=== PATIENT | female | born 1935 | race Caucasian/White ===

== ENCOUNTER 2018-10-22 15:39 | Inpatient (IN) | payer OTHER ==
[~2018-10-22] VITALS: Ht 167.6 cm; Wt 71.7 kg
[2018-10-22 17:19] VITALS: BP 129/85
[2018-10-22 19:12] LABS: HEMATOCRIT 38.9 % (37.0-47.0); HEMOGLOBIN 13.6 gm/dL (12.0-15.0); MCH 35.6 pg (26.0-34.0); MCHC 34.8 g/dL (28.0-37.0); MCV 102.3 fL (80.0-100.0); RBC 3.8 mil/uL (4.20-5.00); RDW 12.1 % (10.5-14.5); WBC 10.8 thou/uL (4.0-11.0)
[2018-10-22 19:21] LABS: CALCIUM 9.3 mg/dL (8.5-10.1); CREATININE 0.8 mg/dL (0.6-1.0); POTASSIUM 3.5 mmol/L (3.5-5.1)
[2018-10-22 19:58] LABS: PROTIME 10.5 Seconds (9.3-11.4)
[2018-10-22 20:10] VITALS: BP 129/85
[2018-10-22 20:20] VITALS: BP 174/108
[2018-10-22 20:45] VITALS: BP 158/86
[2018-10-22 21:00] VITALS: BP 174/108
[2018-10-22 22:16] VITALS: BP 145/74
[2018-10-23 00:10] VITALS: BP 131/73
[2018-10-23 03:55] VITALS: BP 108/63
[2018-10-23 04:18] LABS: CALCIUM 9.1 mg/dL (8.5-10.1); CREATININE 0.9 mg/dL (0.6-1.0); HEMATOCRIT 37.4 % (37.0-47.0); HEMOGLOBIN 13.2 gm/dL (12.0-15.0); MCHC 35.3 g/dL (28.0-37.0); MCV 102.1 fL (80.0-100.0); POTASSIUM 3.5 mmol/L (3.5-5.1); RBC 3.67 mil/uL (4.20-5.00); RDW 12.5 % (10.5-14.5); WBC 7.4 thou/uL (4.0-11.0)
--- NOTE | 2018-10-23 04:57 | NUR ---
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 Ms. Vera has been reported to.
[2018-10-23 08:41] VITALS: BP 99/60
--- NOTE | 2018-10-23 13:40 | EKG ---
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 ��������������������������������������������� 10/23/18 1340 1916 15 Jeff Rivera MD, [facility] /EPI
--- NOTE | 2018-10-23 13:41 | NUR ---
ASSUMED CARE THIS AM, SHIFT ASSESSMENT DONE, VSS. NPO SINCE LAST NIGHT. DR WEINSTEIN HAS BEEN CONSULTED FOR FRACTURE. REPORTED PAIN, PRN PAIN AND NAUSEA MED GIVEN. INGRAM IN PLACE. DR WEINSTEIN STOPPED BY THIS AFTERNOON AND DECIDED ABOUT SURGERY. AWAITING FOR SURGERY TO PROVIDE A TIME. WILL CONTINUE TO ASSESS AND ASSIST WITH ADLs NEEDED.
[2018-10-23 16:36] VITALS: BP 104/77
--- NOTE | 2018-10-23 16:59 | NUR ---
PATIENT WENT DOWN FOR SURGERY AT 1400. CALL RECEIVED FROM PACU SHORTLY AFTER INDICATING THAT PATIENT WAS AFIB WITH RVR. SURGERY WAS PLACED ON HOLD. DR WEINSTEIN CALLED AND ASKED TO PUT IN A CARDIOLOGY CONSULT, DR BORDEN WAS CONSULTED AND ANSWERING SERVICE CALLED. ORDERS RECEIVED TO TRANFER PATIENT TO , REPORT CALLED TO NURSE YANCY. PATIENT CAN HAVE FOOD TODAY. DR WEINSTEIN INDICATED IF CARDIOLIGY CAN CLEAR THE PAITNET FOR SURGERY TODAY THEN HE CAN DO THE SURGERY AT 0730 TOMORROW HE IS GOING OUT OF TOWN TOMORROW, IF NOT ONE OF HIS PARTNERS WILL BE DOING THE SURGERY AT A LATER TIME POINT. DR CHAUHAN=TEO CAN BE DIRECTLY REACHED AT [phone].
--- NOTE | 2018-10-23 18:41 | NUR ---
ASSUMED CARE OF PT AROUND 1620. REPORT TAKEN FRON 4EAST AND SURGERY NURSE. SURGERY TO RIGHT HIP ON HOLD DUE TO AFIB/RVR. PT BROUGHT TO CCU ROOM 215 PER SURGERY NURSES. PT HR 130-140 CARDIZEM GTT STARTED IN OR. HR NOW 80'S. PT ALERT AND ORIENTED TIMES FOUR. VSS, 96%2L, C/O PAIN RIGHT HIP PRN PAIN MEDICATIONS GIVEN WITH RELEIF. PLAN FOR SURGERY TOMORROW. PT TOLERATES MEDS AND MEALS. FAMILY AT BEDSIDE. WILL CONTINUE TO MONITOR.
[2018-10-23 19:35] VITALS: BP 97/53
[2018-10-23] MEDS ORDERED: LASIX 20 MG TAB20 MG PO (20:56)
[2018-10-23] MEDS ORDERED: NEURONTIN 300300 M1 PO (20:58)
[2018-10-24 00:30] VITALS: BP 106/56
[2018-10-24 05:25] VITALS: BP 102/58
--- NOTE | 2018-10-24 06:35 | NUR ---
ASSUME CARE 190. PT/VITALS STABLE. DENIES ANY PAIN AT THIS TIME. ENCOURAGED TO CALL FOR PAIN MEDICATION BEFORE PAIN GETS OUT OF HAND. ASSESSMENT ASA CHARTED. PROGRESSING WITH POC. PLAN IS NPO FOR POSSIBLE SURGERY TODAY OF CARDIOLOGY CLEAR PT. PT SR ALL NIGHT WITH RATE CONTROLLED. WILL CONTINUE TO MONITOR AND FOLLOW WITH POC
[2018-10-24 08:06] VITALS: BP 123/78
--- NOTE | 2018-10-24 10:05 | 2DMMODE ---
[facility] [address] [place] [address] 2 D/M-MODE ECHOCARDIOGRAM Name: NICOLETTE NINO Room #: 215-P ADM IN M.R.#: [id number] ������������� Admission: 10/22/18 ������������� Attend Phys: Trell Ng MD Discharge: ��� ������������� ��� Date of : 33 Date of Service: 10/24/18 1005 �� Report #: [id number] �������� ��������������������������������������������[id number] THIS REPORT FOR: //name// APPROVED REPORT Study performed: 10/24/2018 09:10:23 EXAM: Comprehensive 2D, Doppler, and color-flow Echocardiogram Patient Location: Bedside Room #: 215 Status: routine BSA: 1.67 HR: 84 bpm BP: 123/78 mmHg Rhythm: NSR Other Information Study Quality: Adequate Indications Pre-Op Atrial Fibrillation 2D Dimensions RVDd: 39.00 mm IVSd: 10.03 (7-11mm) LVOT Diam: 19.61 (18-24mm) LVDd: 41.77 mm PWd: 9.04 (7-11mm) LVDs: 32.74 (25-40mm) Aortic Root: 34.53 mm Volumes Left Atrial Volume (Systole) Single Plane 4CH: 63.09 mL Single Plane 2CH: 52.79 mL LA ESV Index: 39.00 mL/m2 Aortic Valve AoV Peak Meek.: 1.44 m/s AO Peak Gr.: 8.33 mmHg LVOT Max P.17 mmHg LVOT Max V: 1.02 m/s YOLANDA Vmax: 2.14 cm2 Mitral Valve E/A Ratio: 1.4 MV Decel. Time: 221.00 ms [facility] [address] [place] [address] 2 D/M-MODE ECHOCARDIOGRAM Name: NICOLETTE NINO Room #: 215-P ADM IN .R.#: [id number] ������������� Admission: 10/22/18 ������������� Attend Phys: Trell Ng MD Discharge: ��� ������������� ��� Date of : 34 Date of Service: 10/24/18 1005 �� Report #: [id number] �������� ��������������������������������������������[id number] E Max Meek.: 0.95 m/s MV A Meek.: 0.67 m/s MV PHT: 64.09 ms IVRT: 73.82 ms Pulmonary Valve PV Peak Meek.: 0.86 m/s PV Peak Gr.: 2.93 mmHg Tricuspid Valve TR Peak Meek.: 2.35 m/s RAP Estimate: 5.00 mmHg TR Peak Gr.: 22.05 mmHg PA Pressure: 27.00 mmHg Left Ventricle The left ventricle is normal size. There is normal LV segmental wall motion. There is normal left ventricular wall thickness. Left ventricular systolic function is normal. LVEF is 50-55%. Left ventricular filling pattern is normal for age. Right Ventricle The right ventricle is normal size. The right ventricular systolic function is normal. Atria Left atrium is mildly dilated. Right atrium is at the upper limits of normal. Aortic Valve Aortic valve is trileaflet No aortic regurgitation is present. There is no aortic valvular stenosis. Mitral Valve The mitral valve is normal in structure. Trace mitral regurgitation. Tricuspid Valve The tricuspid valve is normal in structure. Mild tricuspid regurgitation. Estimated PAP is 27mmHg. Pulmonic Valve Pulmonic valve is not well visualized. Trace pulmonic regurgitation. Great Vessels The aortic root is normal in size. Ascending aorta is not well visualized. IVC is normal in size and collapses >50% with [facility] [address] [place] [address] 2 D/M-MODE ECHOCARDIOGRAM Name: NICOLETTE NINO SILVESTRE Room #: 215-P ADM IN M.R.#: [id number] ������������� Admission: 10/22/18 ������������� Attend Phys: Trell Ng MD Discharge: ��� ������������� ��� Date of : 34 Date of Service: 10/24/18 1005 �� Report #: [id number] �������� ��������������������������������������������[id number] inspiration. Pericardium There is no pericardial effusion. <Conclusion> Left ventricular systolic function is normal. There is normal LV segmental wall motion. LVEF is 50-55%. Normal diastolic function Aortic valve is trileaflet. No aortic regurgitation or stenosis The mitral valve is normal in structure. Trace mitral regurgitation. Mild tricuspid regurgitation. Estimated pulmonary artery pressure of 27mmHg. There is no pericardial effusion. ��������������������������������������������� <ELECTRONICALLY SIGNED> ���������������������������������������� By: Jeff Rivera MD, [facility] ��������������������������������������������� 10/24/18 1005 1005 04 Jeff Rivera MD, [facility] /INF
[2018-10-24 12:07] VITALS: BP 120/66
--- NOTE | 2018-10-24 13:53 | NUR ---
PT LEFT UNIT TO PREOP AT APPROX 1345
--- NOTE | 2018-10-24 17:05 | EKG ---
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 : 1935 Requested By: Chandler Angelo Order Number: [id number] MD: Jeff Rivera Measurements Intervals [place] Rate: 85 P: 22 [place]: 188 QRS: -8 QRSD: 95 T: 33 QT: 362 QTc: 431 Interpretive Statements Sinus rhythm No significant abnormality Compared to ECG 10/22/2018 19:16:31 No significant changes Electronically Signed On 10-24-2018 17:05:06 CDT by Jeff Rivera [email or web address] ��������������������������������������������� <ELECTRONICALLY SIGNED> ���������������������������������������� By: Jeff Rivera MD, [facility] ��������������������������������������������� 10/24/18 1705 3 3 Jeff Rivera MD, [facility] /EPI
--- NOTE | 2018-10-24 17:07 | NUR ---
INITIAL ASSESSMENT: SW reviewed chart and spoke with nursing and attending physician. Pt was admitted from home after a fall. Pt with right hip fx. Pt was transferred to CCU from due to a-fib with RVR. Pt was cleared by cardiology for surgery. Pt is currently off the unit in surgery. Per chart, pt lives at home in [place], [place]. Prior to admission, pt was independent with ADLs. Pt with hx of ovarian cancer and has completed 6 chemo sessions. FRANCA will follow up with pt and family to discuss discharge plan. FRANCA is following to assist as needed with discharge planning.
--- NOTE | 2018-10-24 17:15 | EKG ---
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 : 1935 Requested By: Tyler Arenas Order Number: [id number] MD: Jeff Rivera Measurements Intervals [place] Rate: 124 P: [place]: QRS: -13 QRSD: 85 T: 60 QT: 301 QTc: 433 Interpretive Statements Atrial fibrillation Borderline low voltage, extremity leads Baseline wander in lead(s) II,III,aVF,V3 Compared to ECG 10/22/2018 19:16:31 Sinus rhythm no longer present Electronically Signed On 10-24-2018 17:15:11 CDT by Jeff Rivera [email or web address] ��������������������������������������������� <ELECTRONICALLY SIGNED> ���������������������������������������� By: Jeff Rivera MD, [facility] ��������������������������������������������� 10/24/18 1715 1622 1622 Jeff Rivera MD, [facility] /EPI
[2018-10-24 18:28] VITALS: BP 139/88
--- NOTE | 2018-10-24 20:20 | NUR ---
ASSUMED CARE OF PT AT SHIFT CHANGE. ASSESSMENTS CHARTED. MEDS GIVEN PER OCT. VSS, PT NSR THROUGHOUT SHIFT. PT ALERT AND ORIENTED, FORGETFUL AT TIMES, C/O PAIN RIGHT HIP, MANAGED WITH IV PAIN MEDS. PT WENT FOR SURGERY THIS SHIFT, SURGERY NOT DONE PT WENT BACK INTO AFIB RVR. SURGERY TO BE POSTPONED UNTIL TOMORROW. CARDIOLOGY AWARE, STARTED PT ON AMIO BOLUS WITH DRIP. FAMILY AT BEDSIDE THROUGHOUT SHIFT, UPDATED, WOULD LIKE TO TALK WITH CARDIOLOGY. CARDIOLOGY TO SEE PT AND FAMILY. FALL PRECAUTIONS IN PLACE, AMIO GTT CONTINUES. WILL CONTINUE TO MONITOR
--- NOTE | 2018-10-24 22:00 | NUR ---
FAMILY WAS CONCERNED OVER PT'S IN AND OUT OF AFIB AND CONFUSION,REQUESTING TO TALK TO A DR,REVIEWED DR'S ORDERS AND PLAN OF CARE.PT CONTINUED TO INSIST TO TALK TO THE DR.CHANGE CONTROL COORDINATOR CONTACTED AND THEY WERE ABLE TO TALK TO CHANGE CONTROL COORDINATOR VIA PHONE SINCE SHE WAS NOT IN THE HOSPITAL.DR BORDEN ROUNDED ON PT AND TALKED TO FAMILY.POC TO CONTINUE WITH AMIODARONE DRIP AND SURGERY TO RIGHT HIP IN THE AM.XANAX ORDERED.PT RESTING AT THIS TIME,FAMILY AT BEDSIDE.WILL CONT TO MONITOR PER POC.
[2018-10-25 04:20] VITALS: BP 108/58
[2018-10-25 07:11] LABS: FOLIC ACID 53.8 ng/mL (8.6-58.9)
[2018-10-25 07:26] VITALS: BP 108/65
--- NOTE | 2018-10-25 07:51 | NUR ---
PT SLEEPING MOST OF THE NOC.EASY TO AROUSE,PT CONTINUES TO REFUSE CARE ASKING STAFF TO GET OUT OF HER ROOM.CONTINUES WITH AMIODARONE DRIP.PT CONVERTED TO SR AT AROUND 2330 LAST NIGHT,HAS BEEN SR IN 80S THROUGH THE NOC.BLOOD PRESSURE WNL.C/O PAIN TO RIGHT HIP THAT IS CONTROLLED WITH PAIN MEDS.NATALY HAYS.MAGNESIUM LOW 1.6 THIS AM,PT REFUSED TO HAVE IV STATED SINCE AMIO AND MAG ARE NOT COMPATIBLE,DAY RN AWARE.FAMILY AT BEDSIDE.POC IS TO CONT WITH RIGHT HIP SURGERY THIS AM.WILL CONT TO MONITOR PER POC.
--- NOTE | 2018-10-25 16:31 | NUR ---
ASSESSMENT CHARTED - MEDS PER OCT - PT GIVEN TYLENOL FOR PAIN WITH MIN EFFECT - PT TO SURGERY THIS AM TO HAVE HIP PINNED - FAMILY AND PATIENT DO NOT WISH FOR HER TO HAVE NARCOTICS. PT VSS BP A LITTLE LOW POST OP. DRESSING C/D/I. AMMIODORONE CONTINUES TO RUN ORDERED - PT HAS BEEN IN SR 1AVB SINCE RETURNING FROM SURGERY. FAMILY HAVE BEEN AT THE BEDSIDE. NO CO'S AT THE PRESENT TIME.
[2018-10-25 19:47] VITALS: BP 106/65
[2018-10-26] VITALS (8 sets, daily range): BP systolic 103–139; BP diastolic 65–92
--- NOTE | 2018-10-26 02:48 | NUR ---
ASSESSMENT DOCUMENTED.PT BEEN RESTING IN NO ACUTE DISTRESS.VSS.S/P RIGHT HIP SURGERY.DRESSING CDI.ICE PACK IN PLACE,ELEVATED EXTREMITY WITH PILLOW.SCDS IN PLACE.PT REMAINS A/OX3 WITH MILD CONFUSION AT TIMES,EASY TO REORIENT.CO-OPERATIVE WITH CARE.CONT WITH AMIODARONE DRIP PER ORDERS.SR ON MONITOR.PT DENIES PAIN OR ANY DISTRESS AT THIS TIME.WILL CONT TO MONITOR PER POC.
[2018-10-26 12:20] LABS: HEMATOCRIT 33.8 % (37.0-47.0); HEMOGLOBIN 11.9 gm/dL (12.0-15.0); MCH 35.1 pg (26.0-34.0); MCHC 35.3 g/dL (28.0-37.0); MCV 99.5 fL (80.0-100.0); RBC 3.4 mil/uL (4.20-5.00); RDW 11.8 % (10.5-14.5)
[2018-10-26 12:28] LABS: CALCIUM 8.4 mg/dL (8.5-10.1); CREATININE 0.8 mg/dL (0.6-1.0); POTASSIUM 3.6 mmol/L (3.5-5.1)
--- NOTE | 2018-10-26 16:01 | O ---
[facility] [place] [address] OPERATIVE REPORT Name: NICOLETTE NINO Room #: 215-P ADM IN M.R.#: [id number] Admission: 10/22/18 ������������������ Attend Phys: Trell Ng MD Discharge: ������������������ Date of : 34 Report #: [id number] THIS REPORT FOR: //name// CC: [facility] physician/PCP Trell Ng DATE OF SERVICE: 10/25/2018 PREOPERATIVE DIAGNOSIS: Right valgus impacted femoral neck fracture. POSTOPERATIVE DIAGNOSIS: Right valgus impacted femoral neck fracture. PROCEDURE: Percutaneous screw fixation, right femoral neck fracture. SURGEON: Ramiro Talbot MD. JOY LOADING MACHINE OPERATOR: Neema Menendez PA-C. INDICATION FOR JOY LOADING MACHINE OPERATOR: Throughout the case, retraction and manipulation was required of the head. This was afforded to me by my aquatics assistant department head. ANESTHESIA: LMA. IMPLANTS: Synthes 7.3 short threaded cannulated screws size 95 for the inferior screw and a size 85 for the 2 superior screws. ESTIMATED BLOOD LOSS: 5 mL. COMPLICATIONS: None. SPECIMENS: None. CONDITION UPON LEAVING THE OPERATING ROOM: Stable. INDICATION FOR PROCEDURE: The patient is an 82-year-old female who lost her balance at home and fell on her right hip. She sustained a right valgus impacted femoral neck fracture. After medical and cardiology clearance and discussion with she and her family, they elected for percutaneous screw fixation. DESCRIPTION OF PROCEDURE: Risks, benefits, alternatives, complications were discussed in detail with the patient including but not limited to risk of anesthesia, risk of damage to nerves, arteries, blood vessels, risk for infection, bleeding, risk for continued hip pain, malunion, nonunion, AVN and need for reoperation. Informed consent was obtained from the patient. The right hip was appropriately marked in the preoperative holding area. [facility] [address] [place] [address] OPERATIVE REPORT Name: MICANICOLETTE Room #: 215-P ADM IN M.R.#: [id number] Admission: 10/22/18 ������������������ Attend Phys: Trell Ng MD Discharge: ������������������ Date of : 34 Report #: [id number] clindamycin was given for preoperative antibiotics. She was brought to the operating room and LMA anesthesia was induced without complications. She was then transferred to the [place] table and the right lower extremity was placed in traction, left lower extremity was scissored. Fluoroscopic imaging was brought in to verify the adequate AP and lateral images could be obtained as was the case. Right hip was then prepped and draped in normal sterile fashion. Timeout was performed properly identifying the patient and procedure as well as the instrumentation and implants. All in the operating room were in agreement. A 2-inch incision centered over the lateral femur was made with a 10 blade through the skin and fascia. Threaded tip guidewire was placed on the lateral femur for the posterior inferior screw. This was taken up into the femoral head under AP and lateral imaging and found to be in good position. The Taylor gun was then used to place the anterior, superior and posterior superior threaded guidewires. These were measured and found to be a 95 for the inferior screw and 85 for the 2 superior screws. Lateral cortex was then drilled and then, a 95 short threaded 7.3 cannulated screw was placed for the inferior screw. The two 85 mm superior screws were also placed. After this, final fluoroscopic images were taken to verify that there was adequate screw placement and length. Wound was thoroughly irrigated with normal saline and closed with 2-0 Vicryl, skin [place] and a soft dressing was applied. The patient tolerated this procedure well and went to recovery room under care of anesthesia postoperatively. ��������������������������������������������� <ELECTRONICALLY SIGNED> ���������������������������������������� By: Ramiro Talbot MD ��������������������������������������������� 10/26/18 1601 1029 1045 Ramiro Talbot MD /nt
--- NOTE | 2018-10-26 17:24 | NUR ---
ASSESSMENT DOCUMENTED. VSS. PT ALERT AND ORIENTED WITH FORGETFULNESS. RCEIVED PRN PAIN MED WITH PARTIAL RELIEF. EVALUATED BY PT/OT. UP IN CHAIR THIS SHIFT. NSR ON TELI. SEEN BY DR. FENG AND DR. BORDEN. ORDERS NOTED. WILL CONTINUE TO MONITOR.
--- NOTE | 2018-10-26 18:14 | NUR ---
FRANCA reviewed chart and spoke with attending physician. Pt is POD #1 of right ZAIDA. FRANCA met with pt and her friend, Shobha, at bedside. Introduced role of SW. Pt is alert/orientated x 4. Pt reports she lives at home alone at the [facility]. Pt is currently renting a home in [place] until the end of November Pt with hx of ovarian cancer. Pt states her next chemo is due in three months. Pt's oncologist is Dr. Emnauel Adame at [facility]. Pt does not currently have a PCP. Prior to admission, pt was independent with ADLs. No use of DME. No hx of HH or SNF/Rehab placement. SW discussed post-acute options with pt. Pt states she is agreeable with post-acute placement in [place]. She will eventually return home to [facility]. Pt's son-in-law, David, came to see pt. Lengthy discussion regarding post-acute placement. Family is interested in the inpt acute rehab at [facility]. FRANCA explained that insurance authorization will need to be obtained, and that SNF would be authorized if acute rehab is not. Pt's YAMEL verbalized understanding and will discuss with family. SW is following to assist as needed with discharge planning.
[2018-10-27 01:28] VITALS: BP 126/92
--- NOTE | 2018-10-27 02:47 | NUR ---
ASSESSMENT DOCUMENTED.PT RESTING IN NO ACUTE DISTRESS.A/OX4 WITH FORGETFULNESS.VSS,RIGHT HIP SURGICAL DRESSING CDI.DENIES PAIN.NATALY HAYS.PT/OT ON BOARD.REMAINS SR ON MONITOR.PT PROGRESSING WELL TOWARDS GOALS.WILL CONT TO MONITOR PER POC.
[2018-10-27 03:52] VITALS: BP 97/51
[2018-10-27 06:00] VITALS: BP 97/51
[2018-10-27 06:37] LABS: HEMOGLOBIN 11.2 gm/dL (12.0-15.0); MCV 100.1 fL (80.0-100.0); RBC 3.2 mil/uL (4.20-5.00); RDW 12.2 % (10.5-14.5); WBC 5.4 thou/uL (4.0-11.0)
[2018-10-27 06:47] LABS: CALCIUM 8.7 mg/dL (8.5-10.1); CREATININE 0.7 mg/dL (0.6-1.0); POTASSIUM 3.7 mmol/L (3.5-5.1)
--- NOTE | 2018-10-27 07:45 | HC ---
[facility] [place] [address] CONSULTATION Name: MICANICOLETTE SILVESTRE Room #: 215-P ADM IN M.R.#: [id number] Admission: 10/22/18 ������������������ Attend Phys: Trell Ng MD Discharge: ������������������ Date of : 34 Report #: [id number] THIS REPORT FOR: //name// CC: [facility] physician/PCP Rosa Ramos CHIEF COMPLAINT: Right femoral neck fracture. HISTORY OF PRESENT ILLNESS: This 82-year-old female has a history of ovarian cancer and osteoporosis, but is otherwise reasonably healthy and active. The patient and family notes that she has been able to ambulate independently and actually walks on a treadmill each day for exercise. She fell at home, landing on the right hip and complains now of right hip pain. CT scan of the pelvis reveals a very minimally impacted fracture of the right femoral neck with the femoral head in good position. No other areas of fracture are identified. There is no evidence of metastatic disease on this study. At the time of my evaluation, the patient is alert and oriented and seems to understand the situation well. She is accompanied by many of her family members. We have had a lengthy discussion regarding her history and current situation. PHYSICAL EXAMINATION: On objective exam, she seems to have good movement of both upper extremities with good strength. She has no complaints with regard to the neck, mid back or low back. The pelvis appears to be stable and well aligned. The left lower extremity reveals good alignment and good range of motion at the hip, knee and ankle, without discomfort. The right lower extremity is also well aligned, but is somewhat uncomfortable with any attempted movement at the right hip, consistent with a nondisplaced femoral neck fracture. DIAGNOSTIC DATA: CT scan of the pelvis reveals a very mildly impacted fracture of the right femoral neck, which is in good position with slight valgus tilt and mild impaction, but without significant displacement. IMPRESSION AND PLAN: Right femoral neck fracture, in good position with mild impaction and slight valgus position. We have had a lengthy discussion regarding these issues and we have reviewed options including nonsurgical management with weightbearing protection and time or surgical management with either percutaneous screw fixation or proximal femoral hemiarthroplasty. After reviewing the potential advantages and disadvantages of each, the patient and her family prefer to go ahead with percutaneous screw stabilization hoping to increase the likelihood of successful healing. They hope to avoid a more aggressive hip replacement type procedure. Pending OR availability and medical clearance, we are planning to proceed with surgery today if possible or early tomorrow if OR time is unavailable. I would anticipate she will be able to resume partial weightbearing using a walker for protection, gradually advancing weightbearing over the coming 6-8 weeks. They understand there is still some [address] [address] CONSULTATION Name: NICOLETTE NINO Room #: 215-P [facility] IN M.R.#: [id number] Admission: 10/22/18 ������������������ Attend Phys: Trell Ng MD Discharge: ������������������ Date of : 34 Report #: [id number] potential for fracture nonunion or AVM, which might require hip replacement at some point in the future. ��������������������������������������������� <ELECTRONICALLY SIGNED> ���������������������������������������� By: Nakul Salomon MD ��������������������������������������������� 10/27/18 0745 1355 0119 Nakul Salomon MD /nt
[2018-10-27 08:29] VITALS: BP 111/63
[2018-10-27] MEDS ORDERED: ELIQUIS5 MG PO (08:29)
[2018-10-27] MEDS ORDERED: PACERONE 200 M200 M1 PO (08:29)
[2018-10-27] MEDS ORDERED: TRAMADOL 50 MG50 MG PO (08:30)
[2018-10-27] MEDS ORDERED: METOPROLOL SUCC25 M1 PO (08:30)
[2018-10-27] MEDS ORDERED: CALCIUM 600 +1 EA13 PO (08:30)
[2018-10-27] MEDS ORDERED: COLACE 100 MG100 MG PO (08:31)
--- NOTE | 2018-10-27 12:44 | NUR ---
SW reviewed chart and spoke with nursing and attending physician. Pt has discharge orders to go to post-acute. SW met with pt and dtr, Cece, at bedside to discuss discharge plan. SW provided list of in-network SNFS for review. Pt's dtr states that they do not want to consider inpt acute rehab at this time. Pt and dtr are interested in [facility] and [facility]. SW explained referral process and need for insurance authorization. Pt and dtr verbalized understanding. project planner to fax referrals to facilities. Pt and dtr request pt to have a private room, vegetarian diet and her cat to be allowed to visit. Pt's dtr has spoken with Idalia at [facility] already. FRANCA is following to assist as needed with discharge planning.
--- NOTE | 2018-10-27 12:55 | NUR ---
DISCHARGE PLANNING. PATIENT IS READY FOR DISCHARGE TODAY. POST ACUTE CARE RECOMMENDED AT DISCHARGE. REFERRAL FAXED TO [facility]. [facility] NOTIFIED OF REFERRAL AND FAMILY REQUESTS. REFERRAL FAXED TO [facility], ALSO AWARE OF REFERRAL AND FAMILY REQUESTS. FAMILY REQUESTING PRIVATE ROOM FOR PATIENT, VEGETARIAN DIET, AND PATIENTS CAT TO BE ABLE TO VISIT. UNIT CM/SW AWARE. FOLLOWING TO ASSIST WITH DISCHARGE PLACEMENT KELIN.
[2018-10-27 15:35] VITALS: BP 117/74
--- NOTE | 2018-10-27 19:37 | NUR ---
ASSESSMENT DOCUMENTED. PT ALERT AND ORIENTED. VSS. NSR ON TELI. PARTICIPATED IN PT AND OT. UP IN THE CHAIR THIS AM. SEEN BY DR. WEINSTEIN AND DR. GAO.ORDERS NOTED. PLAN TO BE DISCHARGE IN AM. WILL CONTINUE TO MONITOR.
[2018-10-27 20:05] VITALS: BP 125/75
[2018-10-28 05:18] VITALS: BP 116/69
--- NOTE | 2018-10-28 07:46 | NUR ---
ASSUME CARE 1900. PT/VITALS STABLE. DENIES ANY PAIN. TOLERATES ACTIVITY MODERATELY. ASSESSMETN CHARTED. PROGRESSING WELL WITH POC. ADEQUATE REST NOTED TONIGHT. PLAN IS A POSSIBLE DISCHARGE TODAY. DRESSING SITE CDI. WILL CONTINUE TO MONITOR AND FOLLOW WITH POC
[2018-10-28 09:14] VITALS: BP 132/80
[2018-10-28] MEDS ORDERED: PACERONE 200 M200 M1 PO (09:40)
--- NOTE | 2018-10-28 09:51 | NUR ---
Nutrition: assess d/t LOS. Pt admitted following fall at home w/ hip fx. Pt has ovarian cancer. Pt was frustrated with food options for vegetarian diet. She doesn't think she has been getting enough protein foods. Explained how to order meals. She has been getting Ensure Max BID; with PO intake, protein needs are most likely being met. Possible d/c today. Pt had no further concerns. With nutrition intervention in place, consider low nutrition risk.
--- NOTE | 2018-10-28 10:15 | NUR ---
FRANCA reviewed chart. Pt is medically stable for discharge to post-acute today. Discussed with Salud Hickey at [facility], who states they are able to accept pt from a clinical standpoint. [facility] can also accept. FRANCA spoke with pt's dtr, Cece, via phone to provide update. Cece states that [facility] is their first choice. SW explained that pt is medically stable for discharge today and will d/c once insurance authorization is obtained. Pt's dtr verbalized understanding. medical planner updated Salud Hickey at [facility], who will submit for authorization. Chart copy ordered. FRANCA is following to assist as needed with discharge planning.
[2018-10-28 12:50] VITALS: BP 133/84
--- NOTE | 2018-10-28 16:44 | NUR ---
ASSESSMENT DOCUMENTED. PT ALERT AND ORIENTED. VSS. DENIED HAVING PAIN OR DISCOMFORT. RIGHT HIP SURGICAL DRESSING C/D/I. INGRAM D/C THIS AM. PT HAS BEEN ABLE TO VOID. HAD LARGE BM THIS AM. ORDERS GIVEN TO DISCHARGE PT TO HOME. DISCAHRGE INSTRUCTIONS GIVEN TO PT. PT VERBERLIZE UNDERSTANDING. REPORT CALLED IN TO SNF. PT LEFT THE FACILITY ACCOM[PANIED BY THE DAUGHTER.
== END 2018-10-28 16:59 | DRG 480 ==
LOC: ER 15:39 → 2N 19:04 → EROBS 19:04 → 4E 20:27 → 2N 10-23 15:18
PROVIDERS: Nurse Practitioner Adult Health; Nurse Practitioner Family; Physician Assistant; ADMIT Hospitalist
DX: S72.001A Fracture of unspecified part of neck of right femur, initial encounter for closed fracture (principal); E43 Unspecified severe protein-calorie malnutrition; E87.1 Hypo-osmolality and hyponatremia; C56.9 Malignant neoplasm of unspecified ovary; S09.8XXA Other specified injuries of head, initial encounter; M85.80 Other specified disorders of bone density and structure, unspecified site; M81.0 Age-related osteoporosis without current pathological fracture; I48.91 Unspecified atrial fibrillation; G62.9 Polyneuropathy, unspecified; Z60.2 Problems related to living alone; M62.84 Sarcopenia; E03.9 Hypothyroidism, unspecified; K59.00 Constipation, unspecified; E55.9 Vitamin D deficiency, unspecified; Z79.899 Other long term (current) drug therapy; Z88.0 Allergy status to penicillin; Z92.21 Personal history of antineoplastic chemotherapy; Z47.89 Encounter for other orthopedic aftercare; W01.0XXA Fall on same level from slipping, tripping and stumbling without subsequent striking against object, initial encounter; Y93.63 Activity, rugby; Y92.098 Other place in other non-institutional residence as the place of occurrence of the external cause; Y99.8 Other external cause status
CPT/HCPCS: 10081; 10183; 50010; 50101; 51412; 51538; 52304; 53400; 53404; 56524; 62110; 62900; 70005